=== PATIENT | female | born 1995 | race Caucasian/White ===

== ENCOUNTER 2019-06-19 15:18 | Emergency (ER) | payer OTHER ==
[~2019-06-19] VITALS: Ht 160 cm; Wt 47.2 kg
[2019-06-19 15:24] VITALS: Ht 160 cm; Wt 47.2 kg
[2019-06-19 19:07] VITALS: BP 119/75
== END 2019-06-19 19:57 | disposition home or self-care (01) ==
LOC: ED 15:18
DX: J18.9 Pneumonia, unspecified organism (principal)
CPT/HCPCS: J0696; J7030; J7512; J7620